=== PATIENT | male | born 1980 ===

== ENCOUNTER 2017-01-25 08:42 | Emergency (ER) | payer OTHER ==
[2017-01-25 09:08] VITALS: BP 131/77; RESP 16; O2SAT 98
[2017-01-25 09:17] VITALS: PULSE 77; TEMP 98.1
--- NOTE | 2017-01-25 09:42 | ED PDOC ---
Arrival/HPI - General Historian: Patient <Lin Torres - Last Filed: 01/25/17 10:32> <Faina Avila - Last Filed: 01/25/17 12:47> - General Chief Complaint: ENT Problem Time Seen by Provider: 01/25/17 09:12 - History of Present Illness Narrative History of Present Illness (Text): 01/25/17 09:35 37-year-old male presents today with decreased hearing and an echo sound in the right ear. Patient states he hears a low pitch buzzing sound and feels as if he can't hear as well on the right ear. Patient states symptoms started this morning. He denies headaches dizziness or weakness. Denies any trauma or injury. Denies blurry vision. Denies decreased sensation right side of face. 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 Pt denies use of any medications besides his blood pressure medication and high cholesterol medication. denies neck pain. denies chest pain or sob. no vomiting/diarrhea. denies weakness in the extremities. pt states he just wants to see an ear doctor. (Lin Torres) Past Medical History - Provider Review Nursing Documentation Reviewed: Yes - Travel History Have you recently traveled outside [place] w/in the past 3 mons?: No - Infectious Disease Hx of Infectious Diseases: None - Tetanus Immunization Tetanus Immunization: Unknown - Cardiac Hx Hypertension: Yes - Psychiatric Hx Substance Use: No - Anesthesia Hx Anesthesia: No <Lin Torres - Last Filed: 01/25/17 10:32> Family/Social History - Physician Review Nursing Documentation Reviewed: Yes Family/Social History: Unknown Family HX Smoking Status: Unknown If Ever Smoked Hx Alcohol Use: No Hx Substance Use: No <Lin Torres - Last Filed: 01/25/17 10:32> Allergies/Home Meds <Lin Torres - Last Filed: 01/25/17 10:32> <Faina Avila - Last Filed: 01/25/17 12:47> Allergies/Adverse Reactions: Allergies Penicillins Allergy (Verified 01/25/17 09:08) DIZZINESS Home Medications: Home Meds Medication Instructions Recorded Confirmed Losartan [Cozaar] 50 mg PO DAILY 01/25/17 01/25/17 Unk Med For Cholestrol 01/25/17 Review of Systems - Review of Systems Constitutional: absent: Fatigue, Fevers Eyes: absent: Vision Changes, Photophobia, Eye Pain ENT: Hearing Changes, Tinnitus. absent: Voice Changes, Sore Throat, Sinus Congestion Respiratory: absent: SOB, Cough Cardiovascular: absent: Chest Pain, Palpitations Gastrointestinal: absent: Abdominal Pain, Nausea, Vomiting Genitourinary Male: absent: Dysuria Musculoskeletal: absent: Arthralgias Skin: absent: Rash, Pruritis Neurological: absent: Headache, Dizziness Psychiatric: absent: Anxiety, Depression <Lin Torres T - Last Filed: 01/25/17 10:32> Physical Exam Vital Signs Reviewed: Yes Temperature: Afebrile Blood Pressure: Normal Pulse: Regular Respiratory Rate: Normal Appearance: Positive for: Well-Appearing, Non-Toxic, Comfortable Pain Distress: None Mental Status: Positive for: Alert and Oriented X 3 - Systems Exam Head: Present: Atraumatic Pupils: Present: PERRL Extroacular Muscles: Present: EOMI Conjunctiva: Present: Normal Ears: Present: Normal, NORMAL TM, Normal Canal, Other (no mastoid tenderness or erythema). No: Erythema, TM Bulging, TM Perf Mouth: Present: Moist Mucous Membranes. No: Drooling, Trismus Pharnyx: Present: Normal. No: ERYTHEMA, EXUDATE Nose (External): Present: Atraumatic Nose (Internal): Present: Normal Inspection Neck: Present: Normal Range of Motion, Trachea Midline. No: Meningeal Signs, Lymphadenopathy, Bruit Respiratory/Chest: Present: Clear to Auscultation, Good Air Exchange. No: Respiratory Distress, Accessory Muscle Use Cardiovascular: Present: Regular Rate and Rhythm, Normal S1, S2. No: Murmurs Abdomen: No: Tenderness Upper Extremity: Present: Normal ROM Lower Extremity: Present: Normal ROM Neurological: Present: GCS=15, Speech Normal, Normal Sensory Function, Gait Normal Skin: Present: Warm, Dry, Normal Color. No: Rashes Psychiatric: Present: Alert, Oriented x 3 <Lin Torres T - Last Filed: 01/25/17 10:32> Vital Signs Temp Pulse Resp BP Pulse Ox 01/25/17 10:00 16 98 01/25/17 09:17 98.1 F 77 16 131/77 98 01/25/17 09:04 98.2 F 76 16 131/77 98 Medical Decision Making <Lin Torres - Last Filed: 01/25/17 10:32> <Faina Avila - Last Filed: 01/25/17 12:47> ED Course and Treatment: 01/25/17 09:43 37yr old male with decreased hearing and tinnitus in right ear since this morning. pt refused CT of head; i advised the patient of the possibility of tumor. pt states he doesnt think it is necessary and just wants to see and ENT doctor. Will give patient referral to ENT specialist. stressed immediate f/u with the ENT specialist and Immediate return if symptoms worsen,persist or if new symptoms develop. pt states he will try to see ENT specialist today. Patient verbalizes understanding of discharge instructions and need for immediate followup. all aspects of this case were discussed the attending of record. impression; Tinnitus Follow up with the ENT specialist within the next 2 days Return immediately if symptoms worsen,persist or if new symptoms develop. ( Lin Torres) - PA / [employer] WORK[employer] / Resident Statement / has reviewed & agrees with the documentation as recorded. (Patient was offered CT head and refused. He was AAOx3 and understood the risks of undiagnosed medical condition from CT not being performed. He reports that he will folllow-up with ENT and return with any worsening symptoms) <Faina Avila - Last Filed: 01/25/17 12:47> Disposition/Present on Arrival - Present on Arrival Any Indicators Present on Arrival: No History of DVT/PE: No History of Uncontrolled Diabetes: No Urinary Catheter: No History of Decub. Ulcer: No History Surgical Site Infection Following: None - Disposition Have Diagnosis and Disposition been Completed?: Yes Disposition Time: 09:48 Patient Plan: Discharge <Lin Torres - Last Filed: 01/25/17 10:32> <Faina Avila - Last Filed: 01/25/17 12:47> - Disposition Diagnosis: Tinnitus of right ear, Decreased hearing Disposition: HOME/ ROUTINE Condition: GOOD Discharge Instructions (ExitCare): Tinnitus (ED) Additional Instructions: Follow up with the ENT specialist within the next 2 days Return immediately if symptoms worsen,persist or if new symptoms develop. Referrals: Nixon Garner DO [Staff Provider] - Follow up with primary Era Gray MD [Staff Provider] - Follow up with primary Forms: WORK NOTE
== END 2017-01-25 10:01 | disposition home or self-care (01) ==
LOC: ED 08:42
DX: H93.11 Tinnitus, right ear (principal); H91.91 Unspecified hearing loss, right ear; I10 Essential (primary) hypertension

== ENCOUNTER 2017-02-28 22:42 | Emergency (ER) | payer OTHER ==
[2017-02-28 22:58] VITALS: BMI 40.3
--- NOTE | 2017-02-28 23:12 | ED PDOC ---
Arrival/HPI <Trevin Fitzpatrick - Last Filed: 02/28/17 23:23> - General Historian: Patient <Jere Wallace - Last Filed: 03/01/17 00:58> - General Chief Complaint: Upper Extremity Problem/Injury Time Seen by Provider: 02/28/17 23:03 - History of Present Illness Narrative History of Present Illness (Text): 02/28/17 23:08 37yo male in ED with complaint of left shoulder pain x 3days. States pain started when a heavy box fell on top of his shoulder 3days ago. States he was seen at [facility] s/p the trauma and was told that xray was negative. He came to ED secondary to persistent pain with FROM on abduction. Taking Ibuprofen with mild relieve. denies any other complaint. (Jere Wallace A) Past Medical History - Provider Review Nursing Documentation Reviewed: Yes - Infectious Disease Hx of Infectious Diseases: None - Tetanus Immunization Tetanus Immunization: Unknown - Cardiac Hx Cardiac Disorders: Yes Hx Hypertension: Yes - Psychiatric Hx Substance Use: No - Anesthesia Hx Anesthesia: No <Jere Wallace - Last Filed: 03/01/17 00:58> Family/Social History - Physician Review Nursing Documentation Reviewed: Yes Family/Social History: Unknown Family HX Smoking Status: Unknown If Ever Smoked Hx Alcohol Use: No Hx Substance Use: No <Jere Wallace - Last Filed: 03/01/17 00:58> Allergies/Home Meds <Trevin Fitzpatrick - Last Filed: 02/28/17 23:23> <Jere Wallace A - Last Filed: 03/01/17 00:58> Allergies/Adverse Reactions: Allergies Penicillins Allergy (Verified 01/25/17 09:08) DIZZINESS Home Medications: Home Meds Medication Instructions Recorded Confirmed Losartan [Cozaar] 50 mg PO DAILY 01/25/17 02/28/17 Atorvastatin [Lipitor] mg PO DAILY 02/28/17 Review of Systems - Physician Review All systems were reviewed & negative as marked: Yes - Review of Systems Constitutional: Normal Eyes: Normal ENT: Normal Respiratory: Normal Cardiovascular: Normal Gastrointestinal: Normal Genitourinary Male: Normal Musculoskeletal: Arthralgias (Left shoulder pain) Skin: Normal Neurological: Normal Endocrine: Normal Hemo/Lymphatic: Normal Psychiatric: Normal <Jere Wallace - Last Filed: 03/01/17 00:58> Physical Exam Vital Signs Reviewed: Yes Temperature: Afebrile Blood Pressure: Normal Pulse: Regular Respiratory Rate: Normal Appearance: Positive for: Well-Appearing, Non-Toxic, Comfortable Pain Distress: None Mental Status: Positive for: Alert and Oriented X 3 - Systems Exam Head: Present: Atraumatic, Normocephalic Pupils: Present: PERRL Extroacular Muscles: Present: EOMI Conjunctiva: Present: Normal Mouth: Present: Moist Mucous Membranes Neck: Present: Normal Range of Motion Respiratory/Chest: Present: Clear to Auscultation, Good Air Exchange. No: Respiratory Distress, Accessory Muscle Use Cardiovascular: Present: Regular Rate and Rhythm, Normal S1, S2. No: Murmurs Abdomen: Present: Normal Bowel Sounds. No: Tenderness, Distention, Peritoneal Signs Back: Present: Normal Inspection Upper Extremity: Present: Normal ROM, NORMAL PULSES, Tenderness (Focal proximal left shoulder pain), Neurovascularly Intact, Capillary Refill < 2s. No: Cyanosis, Edema, Swelling, Erythema, Temperature Abnormalties, Deformity Lower Extremity: Present: Normal Inspection. No: Edema Neurological: Present: GCS=15, CN II-XII Intact, Speech Normal Skin: Present: Warm, Dry, Normal Color. No: Rashes Psychiatric: Present: Alert, Oriented x 3, Normal Insight, Normal Concentration <Jere Wallace - Last Filed: 03/01/17 00:58> Vital Signs Temp Pulse Resp BP Pulse Ox 02/28/17 23:00 99.3 F 88 16 131/76 97 Medical Decision Making <Trevin Fitzpatrick - Last Filed: 02/28/17 23:23> <Jere Wallace - Last Filed: 03/01/17 00:58> ED Course and Treatment: 03/01/17 00:55 Left shoulder xray - No acute finding noted Result was DW the pt. He was advised to f/u with ortho. TRT ED for any new or worsening symptoms. Rx of Tramadol given. 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 <Trevin Fitzpatrick - Last Filed: 02/28/17 23:23> Disposition/Present on Arrival <Trevin Fitzpatrick - Last Filed: 02/28/17 23:23> - Present on Arrival Any Indicators Present on Arrival: No History of DVT/PE: No History of Uncontrolled Diabetes: No Urinary Catheter: No History of Decub. Ulcer: No History Surgical Site Infection Following: None - Disposition Have Diagnosis and Disposition been Completed?: Yes Disposition Time: 00:05 Patient Plan: Discharge <Jere Wallace - Last Filed: 03/01/17 00:58> - Disposition Diagnosis: Shoulder pain Disposition: HOME/ ROUTINE Patient Problems: Current Active Problems Problem Status Diagnosed Shoulder pain Acute Condition: STABLE Discharge Instructions (ExitCare): Shoulder Pain (ED) Additional Instructions: Follow up with Orthopedist Return to ED for any new or worsening symptoms Prescriptions: traMADol [Ultram] 50 mg PO Q6 #8 tab Referrals: Franc Phan DO [Staff Provider] - Follow up with primary Forms: WORK NOTE
[2017-03-01 01:00] VITALS: BP 137/89; PULSE 80; RESP 18; TEMP 98.2; O2SAT 100
--- NOTE | 2017-03-01 08:52 | RAD ---
PROCEDURE: Radiographs of the Left Shoulder HISTORY: shoulder pain s/p trauma COMPARISON: No prior. FINDINGS: BONES: Normal. No fracture. JOINTS: Normal. Glenohumeral and acromioclavicular joints preserved. No osteoarthritis. SOFT TISSUES: Normal. OTHER FINDINGS: None. IMPRESSION: Normal radiographs of the left shoulder.
== END 2017-03-01 01:55 | disposition home or self-care (01) ==
LOC: ED 22:42
DX: M25.512 Pain in left shoulder (principal); I10 Essential (primary) hypertension

== ENCOUNTER 2017-04-15 07:19 | Emergency (ER) | payer OTHER ==
[2017-04-15 07:53] VITALS: BMI 48.0
[2017-04-15 07:54] VITALS: PULSE 84; TEMP 98.1
[2017-04-15 09:40] VITALS: BP 130/84; RESP 18; O2SAT 96
--- NOTE | 2017-04-15 09:57 | ED PDOC ---
Arrival/HPI - General Chief Complaint: ENT Problem Time Seen by Provider: 04/15/17 08:24 Historian: Patient - History of Present Illness Narrative History of Present Illness (Text): 04/15/17 08:30 A 37 year old male presents to the emergency department complaining of hearing a echo and buzzing sound to the right ear. Patient reports he was here a little over a month ago for the same complaints, for which he was told he had Tinnitus and was advised to follow up with an specialist. Patient says he was offered a head CT during his visited then but he declined. He notes he followed up with Dr. Garner, ENT, and was given medication. He says the symptoms resolved until this morning. Dr. Paniagua recommended the patient get an MRI, which he did get recently and will be getting the results for on 04/20/17. Patient notes along with the echo and buzzing he noticed mild hearing loss. He denies any fever, nausea, or other complaints. Time/Duration: 1-3 hours Symptom Onset: Sudden Symptom Course: Unchanged Quality: Other Activities at Onset: Rest Context: Home Past Medical History - Provider Review Nursing Documentation Reviewed: Yes - Infectious Disease Hx of Infectious Diseases: None - Tetanus Immunization Tetanus Immunization: Unknown - Cardiac Hx Cardiac Disorders: Yes Hx Hypertension: Yes - Pulmonary Hx Respiratory Disorders: No - Neurological Hx Neurological Disorder: No - HEENT Hx HEENT Disorder: No - Renal Hx Renal Disorder: No - Endocrine/Metabolic Hx Endocrine Disorders: No - Hematological/Oncological Hx Blood Disorders: No - Integumentary Hx Dermatological Disorder: No - Musculoskeletal/Rheumatological Hx Musculoskeletal Disorders: No - Gastrointestinal Hx Gastrointestinal Disorders: No - Genitourinary/Gynecological Hx Genitourinary Disorders: No - Psychiatric Hx Psychophysiologic Disorder: No Hx Substance Use: No - Anesthesia Hx Anesthesia: No Family/Social History - Physician Review Nursing Documentation Reviewed: Yes Family/Social History: Unknown Family HX Smoking Status: Never Smoked Hx Alcohol Use: No Hx Substance Use: No Allergies/Home Meds Allergies/Adverse Reactions: Allergies Penicillins Allergy (Verified 04/15/17 07:53) DIZZINESS Home Medications: Home Meds Medication Instructions Recorded Confirmed Losartan [Cozaar] 50 mg PO DAILY 01/25/17 04/15/17 Review of Systems - Physician Review All systems were reviewed & negative as marked: Yes - Review of Systems ENT: Tinnitus Respiratory: absent: Cough Cardiovascular: absent: Chest Pain Gastrointestinal: absent: Abdominal Pain Neurological: Normal Physical Exam Vital Signs Reviewed: Yes Vital Signs Temp Pulse Resp BP Pulse Ox 04/15/17 09:38 84 18 130/84 96 04/15/17 07:53 98.1 F 84 16 139/93 H 98 Temperature: Afebrile Blood Pressure: Hypertensive Pulse: Regular Respiratory Rate: Normal Appearance: Positive for: Well-Appearing, Non-Toxic, Comfortable Pain Distress: None Mental Status: Positive for: Alert and Oriented X 3 - Systems Exam Head: Present: Atraumatic, Normocephalic Pupils: Present: PERRL Extroacular Muscles: Present: EOMI Conjunctiva: Present: Normal Ears: Present: Normal, NORMAL TM, Normal Canal. No: Erythema, TM Bulging, Fluid Mouth: Present: Moist Mucous Membranes Pharnyx: Present: Normal. No: ERYTHEMA, EXUDATE Neck: Present: Normal Range of Motion Respiratory/Chest: Present: Clear to Auscultation, Good Air Exchange. No: Respiratory Distress, Accessory Muscle Use Cardiovascular: Present: Regular Rate and Rhythm, Normal S1, S2. No: Murmurs Abdomen: Present: Normal Bowel Sounds. No: Tenderness, Distention, Peritoneal Signs Back: Present: Normal Inspection Upper Extremity: Present: Normal Inspection. No: Cyanosis, Edema Lower Extremity: Present: Normal Inspection. No: Edema Neurological: Present: GCS=15, CN II-XII Intact, Speech Normal, Motor Func Grossly Intact, Normal Sensory Function, Normal Cerebellar Funct, Norm Deep Tendon Reflexes, Gait Normal Skin: Present: Warm, Dry, Normal Color. No: Rashes Psychiatric: Present: Alert, Oriented x 3, Normal Insight, Normal Concentration Medical Decision Making ED Course and Treatment: 04/15/17 08:30 Impression: A 37 year old male with ringing in the right ear. Differential Diagnosis include but are not limited to: Tinnitus Plan: -- Xanax -- Reassess and disposition Prior Visits: Notes and results from previous visits were reviewed. The patient last presented to the emergency department on 02/28/17 for evaluation of left shoulder pain. Prior to that the patient came in on 01/25/17 for evaluation of hearing echo sound in the right ear. Progress Notes: 04/15/17 08:50 Patient does not want the Xanax and he says he already feels better. He'd rather try herbal medications over the counter. He really just needs a work note and wants to go home. He does not want a CT since he just got an MRI and he thinks it's not necessary. I explained the concern for mass or any other recent for the symptoms that can be evaluated by a CT. He wanted to just wait for the MRI results. I have discussed plan with the patient, who expresses understanding. Patient in agreement with plan to discharged home. Patient is stable for discharge. Patient was instructed to follow up his ENT or return if symptoms worsen or new concerning symptoms arise. - Medication Orders Current Medication Orders: Discontinued Medications Alprazolam (Xanax) 0.5 mg PO STAT STA PRN Reason: Protocol Stop: 04/15/17 08:36 Last Admin: 04/15/17 09:07 Dose: Not Given Non-Admin Reason: Patient Refused - Scribe Statement The provider has reviewed the documentation as recorded by the Scribe Rekha Cortés Provider Scribe Attestation: All medical record entries made by the Scribe were at my direction and personally dictated by me. I have reviewed the chart and agree that the record accurately reflects my personal performance of the history, physical exam, medical decision making, and the department course for this patient. I have also personally directed, reviewed, and agree with the discharge instructions and disposition. Disposition/Present on Arrival - Present on Arrival Any Indicators Present on Arrival: No History of DVT/PE: No History of Uncontrolled Diabetes: No Urinary Catheter: No History of Decub. Ulcer: No History Surgical Site Infection Following: None - Disposition Have Diagnosis and Disposition been Completed?: Yes Diagnosis: Hx of tinnitus Disposition: HOME/ ROUTINE Disposition Time: 08:50 Patient Plan: Discharge Condition: IMPROVED Print Language: GREENLANDIC Additional Instructions: Mr Hughes, thank you for letting us take care of you today. Your provider was Dr. Lopez. You were treated for Tinnitis. The emergency medical care you received today was directed at your acute symptoms. If you were prescribed any medication, please fill it and take as directed. It may take several days for your symptoms to resolve. Return to the Emergency Department if your symptoms worsen, do not improve, or if you have any other problems. Please contact your doctor or call one of the physicians/clinics you have been referred to that are listed on the Patient Visit Information form that is included in your discharge packet. Bring any paperwork you were given at discharge with you along with any medications you are taking to your follow up visit. Our treatment cannot replace ongoing medical care by a primary care provider (PCP) outside of the emergency department. Thank you for allowing the [facility] team to be part of your care today. If you had an X-Ray or CT scan: A Radiologist will review the ED reading if any change in treatment is needed we will contact you. If you had a blood, urine, or wound culture: It will take several days for the results, if any change in treatment is needed we will contact you. If you had an STI test: It will take 48 hours for the results. Please call after 1 week if you have not heard back. Referrals: Erick Kennedy MD [Primary Care Provider] - Follow up with primary Forms: [employer] (Belgian), WORK NOTE
== END 2017-04-15 09:40 | disposition home or self-care (01) ==
LOC: ED 07:19
DX: H93.11 Tinnitus, right ear (principal)

== ENCOUNTER 2017-05-06 07:18 | Emergency (ER) | payer OTHER ==
[2017-05-06 07:18] VITALS: BMI 48.0
[2017-05-06 07:37] VITALS: O2SAT 99
--- NOTE | 2017-05-06 07:48 | ED PDOC ---
Arrival/HPI - General Chief Complaint: ENT Problem Time Seen by Provider: 05/06/17 07:29 Historian: Patient - History of Present Illness Narrative History of Present Illness (Text): 05/06/17 07:44 Kushal Hughes is a 37 year old male, with a history of Tinnitus, presents to the emergency department complaining of ringing to right ear. Patient was evaluated twice in the emergency department for similar complaints. Patient was evaluated by ENT recently when MRI was done. Patient states the ringing sensation worsened while he was at work today morning, and is specifically requesting for a work note. States he will follow up with ENT outpatient within few days. Denies any fever, chills, headache, dizziness, chest pain, SOB, nausea , vomiting, urinary symptoms, or any other complaints at this time. Symptom Onset: Gradual Severity Level: Mild Activities at Onset: Light Past Medical History - Provider Review Nursing Documentation Reviewed: Yes - Infectious Disease Hx of Infectious Diseases: None - Tetanus Immunization Tetanus Immunization: Unknown - Cardiac Hx Cardiac Disorders: Yes Hx Hypertension: Yes - Pulmonary Hx Respiratory Disorders: No - Neurological Hx Neurological Disorder: No - HEENT Hx HEENT Disorder: No - Renal Hx Renal Disorder: No - Endocrine/Metabolic Hx Endocrine Disorders: No - Hematological/Oncological Hx Blood Disorders: No - Integumentary Hx Dermatological Disorder: No - Musculoskeletal/Rheumatological Hx Musculoskeletal Disorders: No - Gastrointestinal Hx Gastrointestinal Disorders: No - Genitourinary/Gynecological Hx Genitourinary Disorders: No - Psychiatric Hx Psychophysiologic Disorder: No Hx Substance Use: No - Anesthesia Hx Anesthesia: No Hx Anesthesia Reactions: No Hx Malignant Hyperthermia: No Family/Social History - Physician Review Nursing Documentation Reviewed: Yes Family/Social History: No Known Family HX Smoking Status: Never Smoked Hx Alcohol Use: No Hx Substance Use: No Allergies/Home Meds Allergies/Adverse Reactions: Allergies Penicillins Allergy (Verified 05/06/17 07:36) DIZZINESS Home Medications: Home Meds Medication Instructions Recorded Confirmed Losartan [Cozaar] 50 mg PO DAILY 01/25/17 05/06/17 Review of Systems - Physician Review All systems were reviewed & negative as marked: Yes - Review of Systems Constitutional: Normal. absent: Fatigue, Fevers ENT: Tinnitus (R ear ringing ) Respiratory: Normal. absent: SOB Cardiovascular: Normal. absent: Chest Pain, Palpitations Gastrointestinal: Normal. absent: Abdominal Pain, Diarrhea, Nausea, Vomiting Neurological: Normal. absent: Headache, Dizziness Psychiatric: Normal Physical Exam Vital Signs Reviewed: Yes Vital Signs Temp Pulse Resp BP Pulse Ox 05/06/17 07:50 98 F 85 20 129/82 99 05/06/17 07:26 99.3 F 83 18 142/83 97 Temperature: Afebrile Blood Pressure: Normal Pulse: Regular Respiratory Rate: Normal Appearance: Positive for: Well-Appearing, Non-Toxic, Comfortable Pain Distress: None Mental Status: Positive for: Alert and Oriented X 3 - Systems Exam Head: Present: Atraumatic, Normocephalic Pupils: Present: PERRL Conjunctiva: Present: Normal Ears: Present: Normal, NORMAL TM, Normal Canal. No: Erythema, TM Bulging, Fluid , TM Perf Mouth: Present: Moist Mucous Membranes Neck: Present: Normal Range of Motion Respiratory/Chest: Present: Clear to Auscultation, Good Air Exchange. No: Respiratory Distress, Accessory Muscle Use Cardiovascular: Present: Regular Rate and Rhythm, Normal S1, S2. No: Murmurs Abdomen: Present: Normal Bowel Sounds. No: Tenderness, Distention, Peritoneal Signs Upper Extremity: Present: Normal Inspection. No: Cyanosis, Edema Lower Extremity: Present: Normal Inspection. No: Edema Neurological: Present: GCS=15, CN II-XII Intact, Speech Normal, Motor Func Grossly Intact, Normal Sensory Function Skin: Present: Warm, Dry, Normal Color. No: Rashes Psychiatric: Present: Alert, Oriented x 3, Normal Insight, Normal Concentration Medical Decision Making ED Course and Treatment: 05/06/17 07:49 Impression: A 37 year old male who presents to the ed complaining of ringing to right ear. Progress Notes: Patient is stable for discharge. Presents specifically for work note. States he will follow up outpatient with his ENT within few days. Advised to present to ed for worsening symptoms. - Scribe Statement The provider has reviewed the documentation as recorded by the Kristian York Provider Attestation: All medical record entries made by the [facility] were at my direction and personally dictated by me. I have reviewed the chart and agree that the record accurately reflects my personal performance of the history, physical exam, medical decision making, and the department course for this patient. I have also personally directed, reviewed, and agree with the discharge instructions and disposition. Disposition/Present on Arrival - Present on Arrival Any Indicators Present on Arrival: No History of DVT/PE: No History of Uncontrolled Diabetes: No Urinary Catheter: No History of Decub. Ulcer: No History Surgical Site Infection Following: None - Disposition Have Diagnosis and Disposition been Completed?: Yes Diagnosis: Tinnitus Disposition: HOME/ ROUTINE Disposition Time: 07:30 Condition: STABLE Discharge Instructions (ExitCare): Tinnitus (ED) Additional Instructions: please follow up with your specialist. return to er with worsening symptoms or concerns. Referrals: Erick Kennedy MD [Primary Care Provider] - Follow up with primary Forms: WORK NOTE
[2017-05-06 07:51] VITALS: BP 129/82; PULSE 85; RESP 20; TEMP 98
== END 2017-05-06 07:52 | disposition home or self-care (01) ==
LOC: ED 07:18
DX: H93.11 Tinnitus, right ear (principal)

== ENCOUNTER 2017-05-21 18:12 | Emergency (ER) | payer OTHER ==
[2017-05-21 18:51] VITALS: BMI 39.9
[2017-05-21] MEDS ORDERED: Sodium Chloride 0.9% 1,000 ML IV STA ×2 (19:18→22:36)
[2017-05-21 19:50] LABS: BASO # 0.02 K/mm3 (0.0-2.0); BASO % 0.2 % (0.0-3.0); EOS % 0.1 % (1.5-5.0); GRAN # 6.17 (1.4-6.5); GRAN % 72.2 % (50.0-68.0); HEMOGLOBIN 14.5 gm/dL (14.0-18.0); LYMPH # 1.6 (1.2-3.4); LYMPH % 18.5 % (22.0-35.0); MEAN CELL VOLUME 86.3 fL (80.0-105.0); MEAN CORPUSCULAR HEMOGLOBIN 29.6 pg (25.0-35.0); MEAN CORPUSCULAR HGB CONC 34.3 g/dl (31.0-37.0); MONO # 0.8 (0.1-0.6); PLATELET COUNT 259 10^3/uL (120.0-450.0); RED CELL DISTRIBUTION WIDTH 13.1 % (11.5-14.5); WHITE BLOOD COUNT 8.6 10^3/ul (4.5-11.0)
[2017-05-21 19:57] LABS: INR 1.06 (0.93-1.08); PARTIAL THROMBOPLASTIN TIME 28.8 Seconds (23.7-30.8); PROTHROMBIN TIME 11.4 Seconds (9.9-11.8)
[2017-05-21 20:00] LABS: ALB/GLOB RATIO 1.1 (1.1-1.8); ALBUMIN 4.5 g/dL (3.0-4.8); ALT/SGPT 33 U/L (7-56); AST/SGOT 28 U/L (15-59); BLOOD UREA NITROGEN 10 mg/dL (7-21); CALCIUM 9.2 mg/dL (8.4-10.5); GFR AFRICAN-AMERICAN > 60; GFR NON-AFRICAN AMERICAN > 60
--- NOTE | 2017-05-21 20:35 | CT ---
EXAM: CT Head Without Intravenous Contrast CLINICAL HISTORY: 37 years old, male; Signs and symptoms; Dizziness; Additional info: Dizzy TECHNIQUE: Axial computed tomography images of the head/brain without intravenous contrast. This CT exam was performed using one or more of the following dose reduction techniques: automated exposure control, adjustment of the mA and/or kV according to patient size, and/or use of iterative reconstruction technique. EXAM DATE/TIME: 05/21/2017 7:18 PM COMPARISON: There are no prior studies for comparison. FINDINGS: Brain: Ventricles are normal in size and configuration. There is no midline shift. There are no intra-axial or extra-axial mass lesions or areas of hemorrhage. There are no abnormal fluid collections. Blair-white differentiation is maintained. Ventricles: See above. Bones: Cranial vault is intact. Soft tissues: unremarkable Sinuses: There is no acute sinusitis. Ears and mastoids: Middle ears and mastoids are unremarkable Orbits: Orbital contents are unremarkable. IMPRESSION: No acute intracranial abnormality
--- NOTE | 2017-05-21 20:42 | ED PDOC ---
Arrival/HPI <Curtis Ordonez - Last Filed: 05/21/17 23:14> <Noam Eagle - Last Filed: 05/22/17 06:27> - General Chief Complaint: Flu-like Symptoms Time Seen by Provider: 05/21/17 19:03 - History of Present Illness Narrative History of Present Illness (Text): 05/21/17 22:07 38yo male with 3 days duration dry non-productive cough, fevers, chills, bodyaches, and dizziness. States his symptoms accomp by on/off VELEZ. Not the worst VELEZ of his life, no n/v, not posterior. Denies neck or back pain. Denies any ear ache, denies cp/sob/francis. (Curtis Ordonez) Past Medical History - Provider Review Nursing Documentation Reviewed: Yes - Infectious Disease Hx of Infectious Diseases: None - Tetanus Immunization Tetanus Immunization: Unknown - Cardiac Hx Cardiac Disorders: Yes Hx Hypertension: Yes - Pulmonary Hx Respiratory Disorders: No - Neurological Hx Neurological Disorder: No - HEENT Hx HEENT Disorder: No - Renal Hx Renal Disorder: No - Endocrine/Metabolic Hx Endocrine Disorders: No - Hematological/Oncological Hx Blood Disorders: No - Integumentary Hx Dermatological Disorder: No - Musculoskeletal/Rheumatological Hx Musculoskeletal Disorders: No - Gastrointestinal Hx Gastrointestinal Disorders: No - Genitourinary/Gynecological Hx Genitourinary Disorders: No - Psychiatric Hx Psychophysiologic Disorder: No Hx Substance Use: No - Anesthesia Hx Anesthesia: No Hx Anesthesia Reactions: No Hx Malignant Hyperthermia: No <Curtis Ordonez - Last Filed: 05/21/17 23:14> Family/Social History Family/Social History: Unknown Family HX Smoking Status: Never Smoked Hx Alcohol Use: No Hx Substance Use: No <Curtis Ordonez - Last Filed: 05/21/17 23:14> Allergies/Home Meds <Curtis Ordonez - Last Filed: 05/21/17 23:14> <Noam Eagle - Last Filed: 05/22/17 06:27> Allergies/Adverse Reactions: Allergies Penicillins Allergy (Verified 05/21/17 18:51) DIZZINESS Home Medications: Home Meds Medication Instructions Recorded Confirmed Losartan [Cozaar] 50 mg PO DAILY 01/25/17 05/21/17 Gemfibrozil [Lopid] 600 mg PO BID 05/21/17 05/21/17 Physical Exam Vital Signs Reviewed: Yes Temperature: Febrile Blood Pressure: Hypertensive Pulse: Tachycardic Respiratory Rate: Normal Appearance: Positive for: Well-Appearing Pain Distress: None Mental Status: Positive for: Alert and Oriented X 3 <Curtis Ordonez - Last Filed: 05/21/17 23:14> <Noam Eagle - Last Filed: 05/22/17 06:27> - Physical Exam Narrative Physical Exam (Text): - Review of Systems Constitutional: Fevers. absent: Fatigue, Weight Change Eyes: Normal ENT: denies sore throat, denies tristhmus Respiratory: cough absent: SOB, Sputum Cardiovascular: absent: Chest Pain, Palpitations, Syncope Gastrointestinal: Normal. absent: Abdominal Pain, Diarrhea, Nausea, Vomiting Genitourinary: Normal. absent: Dysuria, Frequency, Hematuria Musculoskeletal: Normal. absent: Arthralgias, Back Pain, Neck Pain Skin: no rashes, no erythema Neurological: dizziness, VELEZ absent: Focal Weakness Endocrine: Normal Hemo/Lymphatic: Normal Psychiatric: No suicidal or homicidal ideations Physical exam Patient appears age appropriate in no distress, speaking full sentences without difficulty - Systems Exam Head: Present: Atraumatic, Normocephalic Pupils: Present: PERRL Extroacular Muscles: Present: EOMI Conjunctiva: Present: Normal Mouth: Present: Moist Mucous Membranes Neck: Present: Normal Range of Motion. No: MIDLINE TENDERNESS, Paraspinal Tenderness, meningeal signs Respiratory/Chest: Present: Clear to Auscultation, Good Air Exchange. No: Respiratory Distress, Accessory Muscle Use, Tachypneic Cardiovascular: Present: Regular Rate and Rhythm, Normal S1, S2, Peripheal Pulses Present. No: Murmurs Abdomen: Present: Normal Bowel Sounds. No: Tenderness, Distention, Peritoneal Signs, Rebound, Guarding Back: Present: Normal Inspection. No: Midline Tenderness, Paraspinal Tenderness Upper Extremity: Present: Normal Inspection. No: Cyanosis, Edema Lower Extremity: Present: Normal Inspection. No: Edema Neurological: Present: GCS=15, Speech Normal, cranial nerves II through XII fully intact with no cerebellar abnormality, neurosensory fully intact. No focal neurological deficits. HINTS exam negative Skin: Present: Warm, Dry, Normal Color. No: Rashes Lymphatic: Present: OX3, NI, NC Psychiatric: Present: Alert, Oriented x 3, Normal Insight, Normal Concentration (Curtis Ordonez) Vital Signs Temp Pulse Resp BP Pulse Ox 05/22/17 06:22 89 17 141/88 98 05/22/17 01:04 99.8 F H 87 18 169/86 H 98 05/21/17 22:31 99.1 F 89 18 145/74 98 05/21/17 21:03 89 99 05/21/17 20:59 99.4 F 146/77 05/21/17 18:44 102.6 F H 114 H 20 147/91 H 97 Medical Decision Making <Curtis Ordonez - Last Filed: 05/21/17 23:14> Re-evaluation Time: 06:27 Reassessment Condition: Re-examined, Improved <Noam Eagle - Last Filed: 05/22/17 06:27> ED Course and Treatment: 37yo male with fever, chills cough, VELEZ, dizziness. No focal neurological deficits on exam. Head CT: Creator : ALTA SHAH IMPRESSION: No acute intracranial abnormality on reevaluation, pt is afebrile, no VELEZ, states he feels still has dry cough CXR with no PTx, no infiltrates, no effusions. Interpreted by me. 05/21/17 23:14 pt states he still feels slightly dizzy I advised pt to stay in the hospital for observation, and not to drive pt states he would like to stay in the ED for another hour signed out to Dr. Eagle in stable condition, pending reevaluation (Curtis Ordonez) - Lab Interpretations Lab Results: 05/21/17 19:30 05/21/17 19:30 Lab Results 05/21/17 19:30: Sodium 137, Potassium 3.7, Chloride 99, Carbon Dioxide 24, Anion Gap 18, BUN 10, Creatinine 0.8, Est GFR ( Amer) > 60, Est GFR (Non- Af Amer) > 60, Random Glucose 145 H, Calcium 9.2, Total Bilirubin 0.8, AST 28, ALT 33, Alkaline Phosphatase 76, Total Protein 8.5 H, Albumin 4.5, Globulin 4.0 , Albumin/Globulin Ratio 1.1 05/21/17 19:30: PT 11.4, INR 1.06, APTT 28.8 05/21/17 19:30: WBC 8.6, RBC 4.90, Hgb 14.5, Hct 42.3, MCV 86.3, MCH 29.6, MCHC 34.3, RDW 13.1, Plt Count 259, MPV 11.0, Gran % 72.2 H, Lymph % (Auto) 18.5 L, [place] % (Auto) 9.0 H, Eos % (Auto) 0.1 L, Baso % (Auto) 0.2, Gran # 6.17, Lymph # 1.6, [place] # 0.8 H, Eos # 0.0, Baso # 0.02 - RAD Interpretation Radiology Orders: 05/21/17 19:18 HEAD W/O CONTRAST [CT] Stat 05/21/17 19:19 CHEST PORTABLE [RAD] Stat - Medication Orders Current Medication Orders: Discontinued Medications Acetaminophen (Tylenol 325mg Tab) 975 mg PO STAT STA Stop: 05/21/17 19:19 Last Admin: 05/21/17 19:34 Dose: 975 mg Sodium Chloride (Sodium Chloride 0.9%) 1,000 mls @ 1,000 mls/hr IV .Q1H STA Stop: 05/21/17 20:17 Last Admin: 05/21/17 19:34 Dose: 1,000 mls/hr Sodium Chloride (Sodium Chloride 0.9%) 1,000 mls @ 1,000 mls/hr IV .Q1H STA Stop: 05/21/17 23:35 Last Admin: 05/21/17 22:40 Dose: 1,000 mls/hr Meclizine HCl (Antivert) 25 mg PO STAT STA Stop: 05/21/17 22:37 Last Admin: 05/21/17 22:41 Dose: 25 mg Disposition/Present on Arrival - Present on Arrival Any Indicators Present on Arrival: No History of DVT/PE: No History of Uncontrolled Diabetes: No Urinary Catheter: No History of Decub. Ulcer: No History Surgical Site Infection Following: None - Disposition Have Diagnosis and Disposition been Completed?: Yes Disposition Time: 22:22 Patient Plan: Discharge <Curtis Ordonez - Last Filed: 05/21/17 23:14> - Present on Arrival Any Indicators Present on Arrival: No - Disposition Have Diagnosis and Disposition been Completed?: Yes Disposition Time: 06:27 <Noam Eagle - Last Filed: 05/22/17 06:27> - Disposition Diagnosis: Fever Disposition: HOME/ ROUTINE Patient Problems: Current Active Problems Problem Status Onset Fever Acute Condition: GOOD Discharge Instructions (ExitCare): Fever in Adults (ED), Dizziness (ED), General Headache (ED) Additional Instructions: PLEASE RETURN TO THE EMERGENCY DEPARTMENT FOR NEW OR WORSENING SYMPTOMS. RETURN RIGHT AWAY IF YOU CANNOT FOLLOW UP WITH YOUR PRIMARY CARE DOCTOR, CLINIC, OR SPECIALIST IN 1-2 DAYS. Prescriptions: Acetaminophen [Tylenol Extra Strength] 500 mg PO Q6 PRN #15 tablet PRN Reason: Fever >100.4 F Azithromycin [Zithromax] 250 mg PO DAILY #1 packet Meclizine [Meclizine*] 25 mg PO Q6 #15 tab Referrals: Erick Kennedy MD [Primary Care Provider] - Follow up with primary
[2017-05-21 22:31] VITALS: O2SAT 98
[2017-05-22 06:23] VITALS: BP 141/88; PULSE 89; RESP 17
[2017-05-22 06:45] VITALS: TEMP 99.2
--- NOTE | 2017-05-22 08:03 | RAD ---
HISTORY: cough COMPARISON: No prior. FINDINGS: LUNGS: No active pulmonary disease. PLEURA: No significant pleural effusion identified, no pneumothorax apparent. CARDIOVASCULAR: Normal. OSSEOUS STRUCTURES: No significant abnormalities. VISUALIZED UPPER ABDOMEN: Normal. OTHER FINDINGS: None. IMPRESSION: No active disease.
== END 2017-05-22 06:40 | disposition home or self-care (01) ==
LOC: ED 18:12
DX: R50.9 Fever, unspecified (principal)
CPT/HCPCS: 70450; 71010; 80053; 85025; 85610; 85730; 96360; 96361; 99285; J7040